=== PATIENT | female | born 1965 | race Caucasian/White ===

== ENCOUNTER 2017-09-26 06:41 | Day surgery (SDC) | payer BC, OTHER ==
--- NOTE | 2017-09-20 16:46 | HP ---
PREOPERATIVE HISTORY AND PHYSICAL: DATE OF SURGERY/ADMISSION: 09/26/17 DATE OF OFFICE VISIT/ENCOUNTER: 08/23/17 ATTENDING SURGEON: Alesia Velazquez MD * (DICTATED BY DAMARIS JOHNSON) PROCEDURE: Left thumb carpometacarpal joint arthroplasty. CHIEF COMPLAINT: Base of left thumb pain. HISTORY OF PRESENT ILLNESS: This is a 52-year-old female. This is a Worker's Compensation case. The patient has been complaining of pain at the base of her left thumb, ongoing since December of 2014. It began when she was employed at [employer] in the [employer], she had to do a lot of repetitive motions with her hands particularly her thumbs. She denies any direct trauma but she does a lot of repetitive pinching, griping and pipetting associated with her job. She has failed conservative treatment including bracing, physical therapy and cortisone injection. X-rays have showed arthritis at the left thumb CMC joint. The patient is interested in pursuing a more permanent solution to the problem and she would like to consider surgery at this point. She has consented to proceed with a left thumb CMC joint arthroplasty. PAST MEDICAL HISTORY: 1. Asthma. 2. GERD. 3. Depression/anxiety. PAST SURGICAL HISTORY: 1. Discectomy. 2. Tubal ligation. CURRENT MEDICATIONS: 1. Esperanza Allergy 180 mg daily. 2. Calcium 600/magnesium 300/vitamin D 200-100 daily. 3. Combivent Respimat 20/100 mcg inhaled 1 puff q.i.d. 4. Fish oil 1000 mg daily. 5. Flonase Allergy Relief 50 mcg/ACT 1 spray each nostril b.i.d. 6. Flovent HFA 220 mcg/ACT. 7. Ibuprofen 200 mg p.r.n. 8. Meloxicam 7.5 mg 1 tab daily. 9. PreviDent 5000 Dry Mouth 1.1%. 10. Sertraline HCl 100 mg daily. ALLERGIES: BENADRYL causes increased heart rate. FAMILY MEDICAL HISTORY: Heart disease and stroke. 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 She is a current smoker approximately a pack and a half per day, has been smoking since being a teenager. She denies recreational drug use. She does admit to alcohol on occasion. REVIEW OF SYSTEMS: General: Negative for fevers, chills, or night sweats. No known anesthesia problems. HEENT: Negative for headache, lightheadedness, or syncopal episodes. Integumentary: Negative for abrasions, lesions, or open wounds. Cardiothoracic: Negative for hypertension, chest pain, palpitations, or edema. Pulmonary: Negative for shortness of breath with exertion, chronic cough or COPD. GI: Positive for GERD. Negative for nausea, vomiting, diarrhea , or constipation. : Negative for nocturia, urinary frequency, urgency, history of UTIs, or kidney problems. Musculoskeletal: Positive for current complaint. Neurological: Positive for depression/anxiety. Negative for paresthesias, numbness, history of seizure, stroke, or epilepsy. Endocrine: Negative for diabetes or thyroid issues. Hematologic: Negative for easy bruising, anemia, excessive bleeding or history of DVT. Infectious Disease: Negative for history of MRSA, hepatitis C or HIV. PHYSICAL EXAMINATION GENERAL: Well-developed, well-nourished 52-year-old female in no acute distress. VITAL SIGNS: Height 5 feet 5 inches, weight 178 pounds, blood pressure 106/64, pulse rate 68. HEENT: Normocephalic, atraumatic. Pupils are equal, round, and reactive to light and accommodation. Extraocular movements are intact. NECK: Supple. No palpable lymph nodes. Throat is clear. PULMONARY: Lungs are clear to auscultation bilaterally. No wheezes, rales or rhonchi. CARDIOVASCULAR: Regular rate and rhythm. S1, S2. No murmurs, rubs, or gallops. No edema. ABDOMEN: Positive bowel sounds, soft, nontender. NEUROLOGIC: Alert and oriented x3. Cranial nerves II through XII are intact. Sensation is intact to light touch. MUSCULOSKELETAL: On exam of her right hand, she has tenderness to palpation at the thumb carpometacarpal joint. She had good motion in the thumb but increased pain if she opposes to the base of her pinky. She also has pain with full abduction and some decreased strength in the left thumb with adduction. She has a positive grind test. Neurovascular function is intact. IMAGING STUDIES: X-rays taken of the left thumb show significant degenerative changes at the CMC joint with loss of joint space and large osteophytes. IMPRESSION: Left thumb carpometacarpal joint arthritis. PLAN: The patient is scheduled to undergo a left thumb carpometacarpal joint arthroplasty with Dr. Velazquez on 09/26/17. She will return to the office 10 days postop for followup and suture removal. A prescription for [place] was e-scribed to the patient's pharmacy for postoperative pain management. DAMARIS JOHNSON [id number]/[facility] #: [id number] [place]
[~2017-09-26 06:41] MED LIST: Buffered Lidocaine 0.9% SYRIN* 5 ML/SYR SYRINGE INTRADERM ONE; Famotidine IV* 10 MG/ML 2 ML (20 mg) IV ONE; Famotidine IV* 10 MG/ML 2 ML (20 mg) ONE; ceFAZolin 2 GM PREMIX (*) 2 GM/50 ML BAG IVPB ONE
[2017-09-26] MEDS ORDERED: DiMENhydriNATE IV* 50 MG/ML VIAL IV PUSH PRN (06:53)
[2017-09-26] MEDS ORDERED: Naloxone* 0.4 MG/ML 1 ML VIAL IV PRN (06:53)
[2017-09-26] MEDS ORDERED: HYDROmorphone INJ* 1 MG/ML CARPUJECT SYRINGE IV PRN (06:53)
[2017-09-26] MEDS ORDERED: oxyCODONE/Acetamin 5/325 MG* TAB PO PRN (06:53)
[2017-09-26] MEDS ORDERED: Lidocaine 1% INJ* 10 MG/ML 30 ML SDV ONE (07:37)
[2017-09-26] MEDS ORDERED: Bupivacaine 0.5% SDV PF* 10-30ML VIAL ONE (07:42)
[2017-09-26] MEDS ORDERED: Midazolam* 1 MG/ML 2 ML VIAL (2 MG) ONE (07:43)
[2017-09-26] MEDS ORDERED: fentaNYL* 50 MCG/ML 2 ML VIAL (100 MCG VIAL) ONE ×2 (07:43→08:11)
[2017-09-26] MEDS ORDERED: Ketorolac INJ* 30 MG/ML 1 ML VIAL ONE (07:45)
[2017-09-26] MEDS ORDERED: DiMENhydriNATE IV* 50 MG/ML VIAL ONE (07:45)
[2017-09-26] MEDS ORDERED: Lidocaine 2% PF * 5 ML VIAL ONE (07:45)
[2017-09-26] MEDS ORDERED: Dexamethasone IV* 4 MG/ML 1 ML (4 MG) ONE (07:45)
[2017-09-26] MEDS ORDERED: Propofol* 10 MG/ML 20 ML BTL IV PUSH ONE (07:45)
[2017-09-26] MEDS ORDERED: HYDROcodone/ACETAMIN 5-325 MG* 1 TAB ONE (09:09)
[2017-09-26 09:58] VITALS: BP 158/78
--- NOTE | 2017-09-27 01:24 | OP ---
DATE OF OPERATION: 09/26/17 [facility] DATE OF : 63 SURGEON: Alesia Velazquez MD CORPORATE COMMUNICATIONS SPECIALIST: DAMARIS Fine ANESTHESIOLOGIST: Jory Caba MD ANESTHESIA: General. PRE-OP DIAGNOSIS: Carpometacarpal arthritis of the left thumb. POST-OP DIAGNOSIS: Carpometacarpal arthritis of the left thumb. OPERATIVE PROCEDURE: Left thumb carpometacarpal arthroplasty. ESTIMATED BLOOD LOSS: Zero. TOURNIQUET TIME: About 30 minutes. INDICATIONS FOR PROCEDURE: Iliana is a 52-year-old woman with painful arthritis at the base of her left thumb. She has failed conservative treatment and presents for thumb CMC arthroplasty on the left. DESCRIPTION OF PROCEDURE: The patient was brought to the operating room and given a general anesthetic and placed in the supine position on the operating table with a tourniquet around her left upper arm. Skin of her left upper extremity was prepped and draped in the usual sterile fashion. The hand and forearm were exsanguinated and the tourniquet elevated to 250 mmHg. An S- shaped incision was made centered over the CMC joint of the left thumb. We carefully dissected bluntly through the subcutaneous tissue and branches of the radial sensory nerve were located and retracted by the surgical elastic knitter, Michelle Montano. The radial artery was then carefully dissected off of the CMC joint capsule. A distally based flap was created at the CMC joint capsule and subperiosteally dissected off of the trapezium. The trapezium was then carefully removed in piecemeal fashion with a rongeur and osteotome. The wound was copiously irrigated with saline. The CMC joint capsule was then secured to the FCR tendon in the base of the wound with 4-0 nylon suture and the remainder of the capsule was closed with 4-0 nylon suture. The wound was irrigated and the position of the MP joint was excellent with about 20 degrees of flexion. So , the skin edges were reapproximated with 4-0 nylon suture and then the wound was dressed with Xeroform, 4x4, Webril and a thumb spica splint. The patient tolerated the procedure well and was brought to the recovery room in good condition. [id number]/[facility] #: [id number] MTDD
== END 2017-09-26 09:54 | disposition home or self-care (01) ==
LOC: OREAST 06:41
PROVIDERS: ATTEND Orthopaedic Surgery
DX: M18.32 Unilateral post-traumatic osteoarthritis of first carpometacarpal joint, left hand (principal); F17.210 Nicotine dependence, cigarettes, uncomplicated; R00.2 Palpitations; J45.909 Unspecified asthma, uncomplicated; K21.9 Gastro-esophageal reflux disease without esophagitis; F41.8 Other specified anxiety disorders
CPT/HCPCS: J0690; J1100; J1240; J1885; J2250; J2704; J3010

== ENCOUNTER 2018-08-07 10:09 | Day surgery (SDC) | payer OTHER ==
--- NOTE | 2018-06-26 16:57 | HP ---
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 CHIEF COMPLAINT: Numbness and tingling right hand, right index finger DIP joint pain. HISTORY OF PRESENT ILLNESS: This is a 53-year-old female. She complains of numbness and tingling in her right hand since July 2017. 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 She denies any acute injury, but symptoms developed doing a lot of repetitive gripping, pinching and pipetting associated with her job. She failed conservative treatment including bracing. Nerve conduction EMG study revealed mild carpal tunnel syndrome. She is also complaining of pain at the right index finger DIP joint, again a work related injury related to repeated pinching and gripping. She developed DIP joint arthritis from these repetitive activities. She is interested in pursuing surgical intervention for both of these problems. PAST MEDICAL HISTORY: 1. Asthma. 2. GERD. 3. Depression/anxiety. PAST SURGICAL HISTORY: 1. Diskectomy. 2. Tubal ligation. 3. Left thumb CMC arthroplasty. CURRENT MEDICATIONS: 1. Esperanza Allergy 180 mg daily. 2. Calcium 600 mg. 3. Magnesium 300 mg. 4. Vitamin D 200 mg daily. 5. Combivent Respimat inhaler 4 times a day p.r.n. 6. Diclofenac sodium 1% apply 4 times daily p.r.n. 7. Fish oil 1000 mg daily. 8. Flonase allergy release 1 spray each nostril twice daily. 9. Flovent HFA p.r.n. 10. Ibuprofen 200 mg p.r.n. 11. Omeprazole 40 mg daily. 12. PreviDent 5000 dry mouth 1.1%. 13. Sertraline HCl 100 mg daily. ALLERGIES: BENADRYL causes racing heart beat. FAMILY MEDICAL HISTORY: Heart disease and stroke. SOCIAL HISTORY: The patient is currently unemployed. She is a current smoker approximately a pack and a half per day, has been smoking since her teenage years. She denies recreational drug use. She drinks alcohol on occasion. REVIEW OF SYSTEMS: Negative for general, cephalic, cardiovascular, respiratory symptoms. GI is positive for GERD. : Negative. Negative other musculoskeletal, integumentary, endocrine, neurologic and hematologic symptoms. Infectious Disease is negative for MRSA, hepatitis C and HIV. PHYSICAL EXAMINATION GENERAL: Well-developed, well-nourished 53-year-old female in no acute distress. VITAL SIGNS: Height 5 feet 5 inches, weight 145 pounds. Pulse rate 74, blood pressure 142/70. HEENT: Normocephalic, atraumatic. Pupils are equal, round and reactive to light and accommodation. Extraocular movements are intact. Throat is clear. NECK: Supple. No palpable lymph nodes. PULMONARY: Lungs are clear to auscultation bilaterally. No wheezes, rales or rhonchi. CARDIOVASCULAR: Regular rate and rhythm. S1, S2. No murmurs, rubs or gallops. No edema. ABDOMEN: Positive bowel sounds. Soft, nontender. MUSCULOSKELETAL: On exam of the right hand, there is no visible thenar wasting , but there is some weakness in the thumb. She has a positive median nerve compression test. Negative Tinel's at the elbow and the wrist. Positive Phalen test. She has good range of motion in her wrist and fingers, and sensation is intact to light touch throughout the hand. Examination of the right index finger reveals some visible arthritic deformity at the DIP joint with pain upon palpation and with motion. There is slight decrease in motion at the joint. NEUROLOGICAL: Alert and oriented x3. Cranial nerves II through XII are intact. IMAGING STUDIES: EMG nerve conduction study of the right upper extremity shows mild carpal tunnel syndrome. X-rays of the right index finger shows severe degenerative arthritis at the DIP joint. IMPRESSION: 1. Right carpal tunnel syndrome. 2. Right index finger DIP joint osteoarthritis. PLAN: The patient is scheduled to undergo a right wrist carpal tunnel release and a right index finger DIP joint fusion with Dr. Velazquez on 07/06/18. She will return to the office 10 days postop for followup and suture removal. A prescription for [place] was e-scribed to the patient's pharmacy for postoperative pain management. DAMARIS JOHNSON [id number]/[facility] #: [id number] [facility]ITAL[facility]ah[facility]a
--- NOTE | 2018-07-19 21:12 | HP ---
AMENDED REPORT NOW INCLUDES DESIGNATED COSIGNER PREOPERATIVE HISTORY AND PHYSICAL: DATE OF SURGERY/ADMISSION: 08/07/18 DATE OF OFFICE VISIT/ENCOUNTER: 07/17/18 ATTENDING SURGEON: Alesia Velazquez MD * (DICTATED BY DAMARIS JOHNSON) PROCEDURE: Right wrist carpal tunnel release, right index finger DIP joint fusion. CHIEF COMPLAINT: Numbness and tingling, right hand; right index finger DIP joint pain. HISTORY OF PRESENT ILLNESS: This is a 53-year-old female. She complains of numbness and tinging in her right hand since July of 2017. 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 She denies any acute injury but symptoms developed doing a lot of repetitive griping , pinching and pipetting associated with her job. She failed conservative treatment including bracing. A nerve conduction EMG study revealed mild carpal tunnel syndrome. She is also complaining of pain at the right index finger DIP joint, again a work related injury, related to repeated pinching and gripping. She developed DIP joint arthritis from these repetitive activities. She is interested in pursing surgical intervention for both of these problems. PAST MEDICAL HISTORY: 1. Asthma. 2. GERD. 3. Depression/anxiety. PAST SURGICAL HISTORY: 1. A discectomy. 2. Tubal ligation. 3. Left thumb CMC arthroplasty. CURRENT MEDICATIONS: 1. Esperanza Allergy 180 mg daily. 2. Calcium 600 mg daily. 3. Magnesium 300 mg daily. 4. Vitamin D 200 mg daily. 5. Combivent Respimat inhaler 4 times a day p.r.n. 6. Diclofenac sodium 1% apply 4 times daily p.r.n. 7. Fish oil 100 mg daily. 8. Flonase Allergy Relief 1 spray each nostril twice daily. 9. Flovent HFA p.r.n. 10. Ibuprofen 200 mg p.r.n. 11. Omeprazole 40 mg daily. 12. PreviDent 5000 dry mount 1.1%. 13. Sertraline HCL 100 mg daily. ALLERGIES: BENADRYL causes a racing heart beat. FAMILY MEDICAL HISTORY: Heart disease and stroke. SOCIAL HISTORY: The patient is currently unemployed. She is a current smoker and smokes approximately a pack and half per day. She has been smoking since her teenage years. She denies recreational drug use. She drinks alcohol on occasion. REVIEW OF SYSTEMS: Negative for general, cephalic, cardiovascular, respiratory symptoms. GI is positive for GERD. is negative. Musculoskeletal is negative for other complaints. Integumentary, endocrine, neurologic, and hematologic are all negative. Infectious Disease is negative for MRSA, hepatitis C and HIV. PHYSICAL EXAMINATION GENERAL: Well-developed, well-nourished 53-year-old female, in no acute distress. VITAL SIGNS: Height 5 feet 4 inches, weight 191 pounds, pulse rate 92, blood pressure 144/85. HEENT: Normocephalic, atraumatic. Pupils were equal, round, and reactive to light and accommodation. Extraocular movements are intact. Throat is clear. NECK: Supple. No palpable lymph nodes. CARDIOVASCULAR: Regular rate and rhythm. S1, S2. No murmurs, rubs or gallops. No edema. PULMONARY: Lungs are clear to auscultation bilaterally. No wheezes, rales or rhonchi. ABDOMEN: Positive bowel sounds. Soft, nontender. MUSCULOSKELETAL: On exam of her right hand, there is no visible thenar waisting , but there is some weakness with thumb abduction. She has a positive median nerve compression test. Negative Tinel's at the elbow and at the wrist. Positive Phalen's test. She has good range of motion in her wrist and fingers and sensation is intact to light touch throughout the hand. Examination of the right index finger reveals some visible arthritic deformity at the DIP joint with pain upon palpation and motion. There is slight decrease in motion at the joint. NEUROLOGICAL: Alert and oriented x3. Cranial nerves II through XII are intact. IMAGING STUDIES: EMG nerve conduction study of the right upper extremity shows mild carpal tunnel syndrome. X-rays of the right index finger shows severe degenerative arthritis of the DIP joint. IMPRESSION: 1. Right carpal tunnel syndrome. 2. Right index finger distal interphalangeal joint osteoarthritis. PLAN: The patient is scheduled to undergo a right wrist carpal tunnel release and a right index finger distal interphalangeal fusion with Dr. Velazquez on . She will return to the office 10 days postoperative followup and suture removal. A prescription for [place] was e-scribed to the patient's pharmacy for postoperative pain management. DAMARIS JOHNSON [id number]/[facility] #: [id number] [facility]ITAL[facility]ah[facility]
[~2018-08-07 10:09] MED LIST changes: -Famotidine IV* 10 MG/ML 2 ML (20 mg) ONE; -ceFAZolin 2 GM PREMIX (*) 2 GM/50 ML BAG IVPB ONE
[2018-08-07] MEDS ORDERED: ceFAZolin 2 GM PREMIX in ORs 2 GM/50 ML BAG IVPB ONE (10:21)
[2018-08-07] MEDS ORDERED: Acetaminophen TAB* 325 MG PO PRN (10:55)
[2018-08-07] MEDS ORDERED: Naloxone* 0.4 MG/ML 1 ML VIAL IV PRN (10:55)
[2018-08-07] MEDS ORDERED: fentaNYL* 50 MCG/ML 2 ML VIAL (100 MCG VIAL) ONE (11:53)
[2018-08-07] MEDS ORDERED: Lidocaine 2% PF * 5 ML VIAL ONE (11:53)
[2018-08-07] MEDS ORDERED: Midazolam* 1 MG/ML 5 ML VIAL (5 MG) ONE (11:53)
[2018-08-07] MEDS ORDERED: Propofol* 10 MG/ML 20 ML BTL ONE ×2 (11:53→13:51)
[2018-08-07] MEDS ORDERED: Ondansetron INJ* 2 MG/ML VIAL ONE (11:53)
[2018-08-07] MEDS ORDERED: Ketorolac INJ* 30 MG/ML 1 ML VIAL ONE (11:53)
[2018-08-07] MEDS ORDERED: Lidocaine 1% INJ* 10 MG/ML 30 ML SDV ONE (13:11)
[2018-08-07 14:26] VITALS: BP 124/66
--- NOTE | 2018-08-08 08:01 | OP ---
DATE OF OPERATION: 08/07/18 - [facility] DATE OF : 63 SURGEON: Alesia Velazquez MD. BUTT SAWYER: DAMARIS Fnie. ANESTHESIA: Local MAC. PRE-OP DIAGNOSIS: Right carpal tunnel syndrome and index finger DIP arthritis. POST-OP DIAGNOSIS: Right carpal tunnel syndrome and index finger DIP arthritis. OPERATIVE PROCEDURE: Right carpal tunnel release and index finger DIP fusion. ESTIMATED BLOOD LOSS: Zero. TOURNIQUET TIME: Tourniquet time for the hand and carpal tunnel release was 5 minutes. Tourniquet time for the finger was 15 minutes. INDICATIONS FOR PROCEDURE: Iliana is a 53-year-old female with numbness and tingling in the median nerve distribution of the right hand. Additionally, has degenerative arthritis of the index finger DIP joint. These are both worker's comp cases on separate accounts. She presents for DIP fusion of the right index finger and right carpal tunnel release. DESCRIPTION OF PROCEDURE: The patient was brought to the operating room, was given a sedation anesthetic and a local infiltration of 10 cc of 1% plain lidocaine in the palm of her right hand. Skin of her right hand and forearm was prepped and draped in the usual sterile fashion. The hand and forearm were exsanguinated. The tourniquet was not working, so the Esmarch bandage was used as a tourniquet and gave a completely bloodless field. A longitudinal incision was made in the palm in line with the ring finger. We dissected through the subcutaneous tissue down to the transverse carpal ligament. The ligament was divided sharply with a knife and then more proximally with the scissors. The nerve was dissected free from the surrounding tissue and there was an area of moderate compression at the mid portion of the ligament. The wound was irrigated and the skin edges reapproximated with 4- 0 nylon suture. Next, a digital block was given with 10 cc of 1% plain lidocaine to the right index finger. A Turni-Cot was placed on the index finger and then the Esmarch bandage was released as the tourniquet for the wrist. An H-shaped incision was made on the dorsal aspect of the DIP joint where we made full-thickness skin flaps down to the joint. The joint was flexed and the articular surfaces of the the distal and middle phalanges were completely removed down to cancellous bleeding bone. A guidewire from the Micro Acutrak set was driven through the center of the distal phalanx into the center of the middle phalanx. Its position was checked on the C-arm and the AP and lateral views and found to be satisfactory. We then drilled over the very tip of the distal phalanx and placed a 20-mm Mini Acutrak screw through the center of both bones. This approximated the distal phalanx to the middle phalanx perfectly. The position of the screw was checked on the C-arm and the AP and lateral views and found to be satisfactory. The guidewire was removed. The wound was irrigated and the skin edges reapproximated with 4-0 nylon suture. The wounds were dressed with Xeroform, 4x4, Webril, and an Darian wrap with a splint on the index finger. The patient was brought to the recovery room in good condition. [id number]/[facility] #: [id number] [place]
== END 2018-08-07 14:36 | disposition home or self-care (01) ==
LOC: OREAST 10:09
PROVIDERS: ATTEND Orthopaedic Surgery
DX: G56.01 Carpal tunnel syndrome, right upper limb (principal); M19.041 Primary osteoarthritis, right hand; J45.909 Unspecified asthma, uncomplicated; K21.9 Gastro-esophageal reflux disease without esophagitis; F41.8 Other specified anxiety disorders; F17.210 Nicotine dependence, cigarettes, uncomplicated
CPT/HCPCS: 76000; C1713; C1776; J0690; J1885; J2250; J2405; J2704; J3010

== ENCOUNTER 2019-04-19 07:12 | Day surgery (SDC) | payer OTHER ==
--- NOTE | 2019-04-11 17:59 | HP ---
HISTORY AND PHYSICAL: DATE OF ADMISSION/SURGERY: 04/19/19 - [facility] DATE OF OFFICE VISIT: 04/11/19 SURGEON: Dr. Alseia Velazquez.* (DICTATED BY DAMARIS POLLOCK) PROCEDURE: Left wrist carpal tunnel release. CHIEF COMPLAINT: Left hand numbness and tingling. HISTORY OF PRESENT ILLNESS: Iliana is a 54-year-old female who has been seen in the past for right carpal tunnel release with Dr. Velazquez and did very well. She is now having persistent symptoms on the left side, similar to what she had on the right, numbness and tingling along the median nerve distribution of the hand. She is having difficulty gripping things. She feels that it is just as bad as the right was before she had surgery and would like to proceed at this time with the same surgery on the left. PAST MEDICAL HISTORY: Asthma, GERD, depression, and anxiety. PAST SURGICAL HISTORY: She had a left CMC arthroplasty, a right carpal tunnel release, right index DIP fusion, a cervical diskectomy, and tubal ligation. MEDICATIONS: 1. Diclofenac sodium 1% apply 4 times daily as needed for pain. 2. PreviDent 5000 Dry Mouth 1.1%. 3. Combivent Respimat 20 mcg/100 mcg/ACT inhale 1 puff into lungs 4 times daily. 4. Sertraline HCl 100 mg 1 tab p.o. daily. 5. Flovent HFA 220 mcg/ACT as directed. 6. Ibuprofen 200 mg as needed for pain. 7. Esperanza Allergy 180 mg 1 p.o. daily. 8. Fish oil 1000 mg 1 p.o. daily. 9. Omeprazole 40 mg 1 p.o. daily. ALLERGIES: She has no true allergies. She does have a side effect to Benadryl that results in increased heart rate. FAMILY HISTORY: Positive for coronary artery disease and peripheral artery disease. SOCIAL HISTORY: She is disabled. She lives with her son. She denies recreational drug use. She is a smoker. She smokes about 1 pack per day x40 years. She drinks alcohol only occasionally. She is right-hand dominant. REVIEW OF SYSTEMS: General: Negative for fevers, chills, night sweats, unexplained weight loss or gain. No known anesthesia problems. HEENT: Positive for headaches. Negative for lightheadedness, syncopal episodes, or visual changes. Integumentary: Negative for abrasions, lesions, or open wounds. Cardiothoracic: Negative for hypertension, chest pain, palpitations, or edema. Respiratory: Positive for chronic cough. Negative for shortness of breath with exertion or wheezing. GI: Negative for nausea, vomiting, diarrhea , constipation, or GERD. : Negative for nocturia, urinary frequency, urgency , history of UTIs, or kidney problems. Musculoskeletal: Positive for left hand numbness and tingling. Positive for chronic back pain. Negative for history of fractures. Psychiatric: Positive for anxiety and depression. Neurologic: Negative for paresthesias, numbness, history of seizure, stroke, or poor balance. Endocrine: Negative for diabetes or thyroid issues. Hematologic: Negative for easy bruising, anemia, bleeding disorders, or history of DVT or PE. ID: Negative for history of MRSA, hep C, or HIV. PHYSICAL EXAMINATION GENERAL: Well-developed, well-nourished 54-year-old female, in no acute distress. VITAL SIGNS: Height 64 inches, weight 193 pounds. Pulse 84, BP 138/92, respirations 18. BMI 33. HEENT: Normocephalic, atraumatic. PERRLA. Extraocular movements intact. Throat is clear. NECK: Supple. No palpable lymph nodes. PULMONARY: Lungs are clear to auscultation bilaterally. No wheezes, rales, or rhonchi. CARDIO: Regular rate and rhythm. S1 and S2 normal. No murmurs, rubs, or gallops. No edema. ABDOMEN: Positive bowel sounds. Soft and nontender. NEUROLOGIC: A and O x3. Cranial nerves II through XII intact. Sensation is intact to light touch. MUSCULOSKELETAL: Left hand: Skin is intact without abrasions or open wounds. There is no soft tissue swelling, erythema, or bruising. There is no thenar atrophy. Positive Tinel sign. Nontender to palpation about the left hand. Strength is 5/5. Wrist has full range of motion without pain. Sensation is altered, but grossly intact in the first, second and third digits. Radial pulses 2+. IMPRESSION: Left wrist carpal tunnel syndrome. PLAN: The patient is scheduled to undergo left wrist carpal tunnel release with Dr. Velazquez on 04/19/19. Dr. Velazquez went over the procedure as well as the risks and benefits with the patient and she elects to proceed. She will return to the office 10 days postop for followup and suture removal. A prescription for tramadol will be e-scribed to the patient's pharmacy for postoperative pain management and I-STOP will be completed. DAMARIS POLLOCK [id number]/[facility] #: [id number] [place]
--- NOTE | 2019-04-11 18:59 | HP ---
HISTORY AND PHYSICAL: DATE OF ADMISSION/SURGERY: 04/19/19 - [facility] DATE OF OFFICE VISIT: 04/11/19 SURGEON: Alesia Velazquez MD.* (DICTATED BY DAMARIS POLLOCK) PROCEDURE: Left elbow ulnar nerve decompression. CHIEF COMPLAINT: Left hand numbness and tingling. HISTORY OF PRESENT ILLNESS: Iliana is a 54-year-old female, right-hand dominant, who is followed up for evaluation of her left elbow ulnar neuropathy at the elbow. She is a Workmen's Comp case established for bilateral ulnar neuropathy. Her date of injury was 10/17/16. 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 She has failed conservative treatment at this point and would like to proceed with left ulnar nerve decompression of the elbow. PAST MEDICAL HISTORY: 1. Asthma. 2. GERD. 3. Depression. 4. Anxiety. PAST SURGICAL HISTORY: 1. Left CMC arthroplasty. 2. Right carpal tunnel release. 3. Right index PIP fusion. 4. Cervical diskectomy. 5. Tubal ligation. MEDICATIONS: 1. Diclofenac sodium 1% apply 4 times daily as needed for pain. 2. PreviDent 5000 Dry Mouth 1.1%. 3. Combivent Respimat 20 mcg/100 mcg/act inhale 1 puff into lungs 4 times daily. 4. Sertraline HCL 100 mg p.o. daily. 5. Flovent HFA 220 mcg/act. 6. Ibuprofen 200 mg p.o. as needed for pain. 7. Esperanza Allergy 180 mg 1 p.o. daily. 8. Fish oil 1000 mg 1 p.o. daily. 9. Calcium/magnesium/vitamin D 200 mg/100 mg/33.3 unit. 10. Flonase Allergy Relief 50 mcg/act 1 spray into each nostril twice daily. 11. Omeprazole 40 mg 1 p.o. daily. ALLERGIES: She has no true allergies. She does have a side effect to Benadryl that results in increased heart rate. FAMILY HISTORY: Positive for coronary artery disease and peripheral artery disease. SOCIAL HISTORY: She is disabled. She lives at home with her son. She denies recreational drug use. She is a smoker; she smokes about a pack per day x40 years. She drinks alcohol occasionally. She is right-hand dominant. REVIEW OF SYSTEMS: General: Negative for fevers, chills, night sweats, unexplained weight loss or gain. No known anesthesia problems. HEENT: Positive for headaches. Negative for lightheadedness, syncopal episodes, or visual changes. Integumentary: Negative for abrasions, lesions, or open wounds. Cardiothoracic: Negative for hypertension, chest pain, palpitations, or edema. Respiratory: Positive for chronic cough. Negative for shortness of breath with exertion or wheezing. GI: Negative for nausea, vomiting, diarrhea , constipation, or GERD symptoms. : Negative for nocturia, urinary frequency , urgency, history of UTIs, or kidney problems. Musculoskeletal: Positive for left hand numbness and tingling. Positive for chronic back pain. Negative for history of fractures. Neurologic: Positive for anxiety and depression. Negative for paresthesias, numbness, history of seizure, stroke, or poor balance. Endocrine: Negative for diabetes or thyroid issues. Hematologic: Negative for easy bruising, anemia, bleeding disorders, history of DVT or PE. ID: Negative for history of MRSA infection, hep C, or HIV. PHYSICAL EXAMINATION GENERAL: Well-developed, well-nourished 54-year-old female, in no acute distress. VITAL SIGNS: Height 64 inches, weight 193 pounds. Pulse 84, BP 138/92, respirations 18. BMI 33. HEENT: Normocephalic, atraumatic. PERRLA. Extraocular movements intact. Throat is clear. NECK: Supple. No palpable lymph nodes. PULMONARY: Lungs are clear to auscultation bilaterally. No wheezes, rales, or rhonchi. CARDIO: Regular rate and rhythm. S1, S2 normal. No murmurs, rubs, or gallops. No edema. ABDOMEN: Positive bowel sounds. Soft and nontender. NEUROLOGIC: A and O x3. Cranial nerves II through XII intact. Sensation is intact to light touch. MUSCULOSKELETAL: Left upper extremity skin is intact without open wounds or abrasions. There is no soft tissue swelling, erythema, or ecchymosis. She has full range of motion at her elbow and wrist. She does have numbness and tingling over the ulnar distribution of her hand. 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 She has positive Tinel's at the elbow. Sensation is altered, but grossly intact over the small and ring fingers of the left hand. Radial pulses 2+. IMPRESSION: Left ulnar nerve compression/cubital tunnel syndrome. PLAN: The patient is scheduled to undergo left ulnar nerve decompression with Dr. Velazquez on 04/19/19. Dr. Velazquez discussed the procedure as well as the risks and benefits with the patient. She elected to proceed. She will return to the office 10 days postop for followup and suture removal. A prescription for tramadol will be e-scribed to the patient's pharmacy for postoperative pain management and I-STOP will be completed. DAMARIS POLLOCK [id number]/[facility] #: [id number] MTDD
[~2019-04-19 07:12] MED LIST changes: -Buffered Lidocaine 0.9% SYRIN* 5 ML/SYR SYRINGE INTRADERM ONE; +Buffered Lidocaine 1% SYRIN* 1 ML/SYRINGE INTRADERM ONE; -Famotidine IV* 10 MG/ML 2 ML (20 mg) IV ONE; +Lactated Ringers 1000 ML Bag* 1,000 ML IV SCH
[2019-04-19] MEDS ORDERED: ceFAZolin 2 GM in NS PREMIX(*) 2 GM/100 ML BAG IVPB ONE (07:25)
[2019-04-19] MEDS ORDERED: fentaNYL* 50 MCG/ML 2 ML VIAL (100 MCG VIAL) ONE (08:04)
[2019-04-19] MEDS ORDERED: Midazolam* 1 MG/ML 5 ML VIAL (5 MG) ONE (08:04)
[2019-04-19] MEDS ORDERED: Bupivacaine 0.5% SDV PF* 30ML VIAL ONE (08:06)
[2019-04-19] MEDS ORDERED: Lidocaine 1% INJ* 10 MG/ML 30 ML SDV ONE (08:06)
[2019-04-19] MEDS ORDERED: Naloxone* 0.4 MG/ML 1 ML VIAL IV PRN (08:07)
[2019-04-19] MEDS ORDERED: Midazolam* 1 MG/ML 2 ML VIAL (2 MG) ONE (08:44)
[2019-04-19] MEDS ORDERED: Propofol* 10 MG/ML 20 ML BTL ONE ×2 (09:01)
[2019-04-19 09:40] VITALS: BP 133/77
--- NOTE | 2019-04-19 13:24 | OP ---
DATE OF OPERATION: 04/19/19 [facility] DATE OF : 63 SURGEON: Dr. Velazquez. BOTANY PROFESSOR: DAMARIS Ace ANESTHESIA: Local MAC. PRE-OP DIAGNOSES: Left carpal tunnel syndrome. POST-OP DIAGNOSES: Left carpal tunnel syndrome. OPERATIVE PROCEDURE: Left carpal tunnel release. ESTIMATED BLOOD LOSS: Zero. TOURNIQUET TIME: Approximately 30 minutes. INDICATIONS FOR PROCEDURE: Iliana is a 54-year-old female who has numbness and tingling in the median nerve distribution of her left hand. She presents for left carpal tunnel release. DESCRIPTION OF PROCEDURE: The patient was brought to the operating room, was given a sedation anesthetic and a local infiltration of 10 cc of 1% plain lidocaine in the palm of her left hand. The skin of her left hand and forearm was prepped and draped in the usual sterile fashion. The hand and forearm were exsanguinated and the tourniquet elevated to 250 mmHg. A longitudinal incision was made in the palm in line with the ring finger. We dissected through the subcutaneous tissue down to the transverse carpal ligament. The ligament was divided sharply with a knife and then more proximally with the scissors. The nerve was dissected free from the surrounding tissue and there was an area of moderate compression at the mid portion of the ligament. The wound was irrigated and the skin edges reapproximated with 4-0 nylon suture. The wound was dressed with Xeroform, 4x4, Webril, and an Darian wrap. The patient was brought to the recovery room in good condition after the second procedure which was dictated in a separate note. [id number]/[facility] #: [id number] MTDJahaira
--- NOTE | 2019-04-19 13:33 | OP ---
DATE OF OPERATION: 04/19/19 - [facility] DATE OF : 63 SURGEON: Alesia Velazquez MD FURNACE HELPER: DAMARIS Ace ANESTHESIA: Local MAC. PRE-OP DIAGNOSIS: Ulnar nerve compression at the left elbow. POST-OP DIAGNOSIS: Ulnar nerve compression at the left elbow. OPERATIVE PROCEDURE: Ulnar nerve decompression at the left elbow. ESTIMATED BLOOD LOSS: Zero. TOURNIQUET TIME: About 30 minutes. INDICATIONS FOR PROCEDURE: Iliana is a 54-year-old female with numbness and tingling in the ulnar nerve distribution of her left hand. She presents for left ulnar nerve decompression at the elbow. DESCRIPTION OF PROCEDURE: The patient was brought to the operating room, was given a sedation anesthetic and local infiltration of 10 cc of 0.5% plain Marcaine at the medial aspect of the left elbow. Additional 10 cc were given during the procedure. The skin of her left upper extremity was prepped and draped in the usual sterile fashion. The upper extremity was exsanguinated and the tourniquet elevated to 250 mmHg. This procedure was done after a carpal tunnel release dictated on a separate note. A curvilinear incision was made centered between the medial epicondyle and the tip of the olecranon process. We dissected through the subcutaneous tissue down to the ulnar nerve proximally. Ulnar nerve was dissected out proximal to the elbow through the cubital tunnel and in between the superficial and deep fascia of the FCU muscle. The nerve was completely decompressed and was maximally compressed at the cubital tunnel. The nerve was in good condition. The wound was irrigated and subcutaneous tissue closed with 2-0 Polysorb and the skin with skin arjun. The wound was dressed with Xeroform, 4x4, Webril, and an Darian wrap. The patient tolerated the procedure well and was brought to the recovery room in good condition. [id number]/[facility] #: [id number] [facility] CENTERJahaira
== END 2019-04-19 09:50 | disposition home or self-care (01) ==
LOC: OREAST 07:12
PROVIDERS: ATTEND Orthopaedic Surgery
DX: G56.02 Carpal tunnel syndrome, left upper limb (principal); G56.22 Lesion of ulnar nerve, left upper limb; J45.909 Unspecified asthma, uncomplicated; K21.9 Gastro-esophageal reflux disease without esophagitis; F41.8 Other specified anxiety disorders
CPT/HCPCS: J0690; J2250; J2704; J3010; J3490

== ENCOUNTER 2019-09-18 13:40 | Day surgery (SDC) | payer OTHER ==
[2019-09-18] MEDS ORDERED: ceFAZolin 2 GM in NS PREMIX(*) 2 GM/100 ML BAG IVPB ONE (15:16)
[2019-09-18] MEDS ORDERED: fentaNYL* 50 MCG/ML 2 ML VIAL (100 MCG VIAL) ONE ×2 (15:59→17:30)
[2019-09-18] MEDS ORDERED: Midazolam* 1 MG/ML 2 ML VIAL (2 MG) ONE (15:59)
[2019-09-18] MEDS ORDERED: Lidocaine 2% PF * 5 ML VIAL ONE (16:01)
[2019-09-18] MEDS ORDERED: ROPIVACAINE 5 MG/ML 30 ML BTL (0.5%) ONE (16:02)
[2019-09-18] MEDS ORDERED: Ropivacaine 0.2% * 2 MG/ML VIAL ONE (16:28)
[2019-09-18] MEDS ORDERED: KETAMINE HCL* 50 MG/ML 10 ML VIAL ONE (16:30)
[2019-09-18] MEDS ORDERED: Ondansetron INJ* 2 MG/ML VIAL ONE (17:20)
[2019-09-18] MEDS ORDERED: Dexamethasone IV* 4 MG/ML 1 ML (4 MG) ONE (17:20)
[2019-09-18] MEDS ORDERED: Ketorolac INJ* 30 MG/ML 1 ML VIAL IV PRN (17:38)
[2019-09-18] MEDS ORDERED: Naloxone* 0.4 MG/ML 1 ML VIAL IV PRN (17:38)
[2019-09-18] MEDS ORDERED: fentaNYL* 50 MCG/ML 2 ML VIAL (100 MCG VIAL) IV PRN (17:38)
[2019-09-18] MEDS ORDERED: Ketorolac INJ* 30 MG/ML 1 ML VIAL ONE (18:12)
[2019-09-18] MEDS ORDERED: hydrALAZINE IV* 20 MG/ML VIAL ONE (18:20)
[2019-09-18] MEDS ORDERED: hydrALAZINE IV* 20 MG/ML VIAL IV SLOW PU ONE (18:21)
[2019-09-18 20:05] VITALS: BP 160/74
--- NOTE | 2019-09-23 20:04 | OP ---
DATE OF OPERATION: 09/18/19 [facility] DATE OF : 63 SURGEON: Martha Silver MD CAPTAIN AIRLINE PILOT: DAMARIS Ace. An assistant basketball coach was needed for the entirety of the case to help with positioning, retraction, and was utilized throughout all portions of the case. ANESTHESIOLOGIST: Dr. Jeong. ANESTHESIA: General with interscalene block. PRE-OP DIAGNOSES: 1. 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 2. Bicipital tendinitis. 3. Acromioclavicular joint arthritis. POST-OP DIAGNOSES: 1. 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 2. Bicipital tendinitis. 3. Acromioclavicular joint arthritis. OPERATIVE PROCEDURE: Left shoulder arthroscopy with: 1. Extensive glenohumeral debridement including biceps tenotomy. 2. Subacromial decompression with acromioplasty. 3. Distal clavicle excision. 4. Rotator cuff repair with Regeneten patch. COMPLICATIONS: None. ESTIMATED BLOOD LOSS: Minimal. INDICATIONS: Iliana Issa is a 54-year-old female who has had persistent left shoulder pain. She has failed conservative management. This is a work- related injury. After obtaining Worker's Comp approval, she has elected to proceed with surgical treatment. We discussed the options. Risks and benefits were discussed at length and included, but are not limited to bleeding; infection; damage to nerves, vessels, surrounding structures; wound nonhealing; persistent pain; need for further surgery; scarring; stiffness; incomplete relief of symptoms; risks of anesthesia. DESCRIPTION OF PROCEDURE: The patient was greeted in the preoperative area by the attending surgeon. Correct extremity was marked and consent was confirmed. The patient underwent interscalene nerve block by the anesthesiologist, after which she was brought back to the operating suite where she was placed in supine position on the operating table. She then underwent general anesthesia and LMA intubation, after which she was placed in the right lateral decubitus position with an axillary roll. All bony prominences were secured. She was secured with a pegboard. The left arm was draped unsterile with 10 pounds of traction. The left shoulder was then prepped and draped in the usual sterile fashion beginning with chlorhexidine soap, scrub, and alcohol wipe, and a final prep with ChloraPrep. After appropriate surgical pause indicating side, site, procedure, and administration of antibiotics, the standard postero-lateral portal was made sharply with 11-blade. Scope was introduced into the joint and the joint was examined. There was abundant synovitis that was present. There was evidence of type 2 SLAP tear and bicipital tendinitis and tendinosis. The anterior portal was made in an outside-in fashion. Shaver was used to debride back the anterior , posterior, and superior labrum. The biceps was then tenotomized. The undersurface of the rotator cuff had some partial-thickness tearing. The inferior recess was intact. There were grade 1 changes to the glenohumeral joint. The subscap was intact. After the debridement was completed, attention was directed to the subacromial space. With the scope positioned in the subacromial space, the lateral portal was made in an outside-in fashion. Shaver was used to debride back the abundant bursa that was present. The undersurface of the acromion was skeletonized and revealed an anterolateral spur, which was debrided back using a 4.0 oval michele, taken all the way to the AC joint where the AC joint was exposed. The michele was brought into the anterior portal. There was abundant stenosis that was present as well as a calcified meniscus. The michele was then used to remove the distal 8 mm of the clavicle and the calcified meniscus was then released using a biter. Care was taken not to damage the CC ligaments or the capsule superiorly. Final images were obtained, which confirmed that enough clavicle was removed. Attention was directed to the subacromial space. All excess debris was removed and attention was directed to the rotator cuff. Again, there was partial-thickness tearing. Decision was made to treat this with a Regeneten patch. A size medium Regeneten patch was then brought to the field. Through a separate stab incision, a cannula was placed and this helped to secure the graft. Once it was secured, the shoulder was taken through gentle range of motion. It was found to be well fixed. The wounds were then copiously irrigated with sterile saline. The portals were closed with 3-0 nylon. Sterile dressings were applied. Cryo/Cuff and a regular sling were applied. She was awoken from anesthesia and transferred to the PACU in stable condition. POSTOPERATIVE PLAN: She will be nonweightbearing in a sling for 2 to 3 days. Discharged on pain medication. DVT prophylaxis was considered, but deferred due to no previous personal or family history. I will see the patient back in 10 to 14 days. [id number]/[facility] #: [id number] [place]
== END 2019-09-18 19:45 | disposition home or self-care (01) ==
LOC: OR 13:40
PROVIDERS: ATTEND Orthopaedic Surgery
DX: S46.012A Strain of muscle(s) and tendon(s) of the rotator cuff of left shoulder, initial encounter (principal); M19.012 Primary osteoarthritis, left shoulder; M75.22 Bicipital tendinitis, left shoulder; M75.42 Impingement syndrome of left shoulder; G89.18 Other acute postprocedural pain; R00.2 Palpitations; F41.9 Anxiety disorder, unspecified; F41.8 Other specified anxiety disorders; J45.909 Unspecified asthma, uncomplicated; K21.9 Gastro-esophageal reflux disease without esophagitis; F17.210 Nicotine dependence, cigarettes, uncomplicated; X58.XXXA Exposure to other specified factors, initial encounter; Y92.9 Unspecified place or not applicable; Y99.0 Civilian activity done for income or pay
CPT/HCPCS: C1713; J0360; J0690; J1100; J1885; J2250; J2405; J2795; J3010